=== PATIENT | male | born 1955 | race Caucasian/White ===

== ENCOUNTER 2018-07-15 20:54 | Inpatient (IN) | payer MEDICAID, OTHER ==
[~2018-07-15] VITALS: Ht 175.3 cm; Wt 82.0 kg
[2018-07-15] MEDS ORDERED: HYDROcodone/acetaminophen 10/325mg tab PO ONE (21:40)
[2018-07-15] MEDS ORDERED: lisinopril 10 MG tablet PO ONE (22:15)
[2018-07-16] VITALS (17 sets, daily range): BP systolic 124–160; BP diastolic 66–110
[2018-07-16] MEDS ORDERED: UNKNOWN B/P MED (00:10)
[2018-07-16] MEDS ORDERED: morphine 4 MG/ML inj SYRINge IV ONE (00:30)
[2018-07-16] MEDS ORDERED: ondansetron/PF 4mg/2ml inj IV ONE (00:30)
[2018-07-16] MEDS ORDERED: magnesium hydroxide 30ml (MOM) UD suspension PO PRN ×2 (01:05→15:45)
[2018-07-16] MEDS ORDERED: mag hydrox/Alum hydrox/simeth 30ml oral suspension PO PRN (01:05)
[2018-07-16] MEDS ORDERED: morphine 2 MG/ML inj. syringe IV PRN (01:05)
[2018-07-16] MEDS ORDERED: acetaminophen 325mg tablet PO PRN ×2 (01:05→15:45)
[2018-07-16] MEDS ORDERED: ondansetron/PF 4mg/2ml inj IV PRN ×2 (01:05→15:40)
[2018-07-16 01:29] LABS: BASOPHILS # (AUTO) 0.1 X10'3 (0-0.2); EOSINOPHILS # (AUTO) 0.5 X10'3 (0-0.9); NEUTROPHILS # (AUTO) 7.5 X10'3 (1.8-7.7); WHITE BLOOD COUNT 10.6 X10'3 (4.5-11.0)
[2018-07-16 01:34] LABS: BASOPHILS % (AUTO) 0.8 % (0-1); EOSINOPHILS % (AUTO) 4.5 % (0-6); HEMATOCRIT 44.3 % (42.0-52.0); HEMOGLOBIN 15.1 g/dl (14.0-17.9); LYMPHOCYTES # (AUTO) 1.7 X10'3 (1.1-4.8); LYMPHOCYTES % (AUTO) 15.8 % (21-51); MEAN CORPUSCULAR HEMOGLOBIN 31.9 PG (27.0-31.0); MEAN CORPUSCULAR HGB CONC 34.2 % (33.0-36.5); MEAN CORPUSCULAR VOLUME 93.3 FL (78-98); MONOCYTES # (AUTO) 0.8 X10'3 (0-0.9); MONOCYTES % (AUTO) 7.2 % (2-12); NEUTROPHILS % (AUTO) 71.7 % (42-75); PLATELET COUNT 241 X10'3 (140-440); RED BLOOD COUNT 4.74 X10'6 (4.70-6.10); RED CELL DISTRIBUTION WIDTH 12.9 % (11.5-14.5)
[2018-07-16] MEDS: normal saline 1000ml 1,000 ML IV SCH ×3 (01:39→20:57)
[2018-07-16 01:41] LABS: PARTIAL THROMBOPLASTIN TIME 27 SECONDS (22-32); PROTHROMBIN TIME 10.4 SECONDS (9.0-12.0)
[2018-07-16 01:43] LABS: ALANINE AMINOTRANSFERASE 39 U/L (12-78); ALBUMIN 3.7 G/DL (3.4-5.0); ALBUMIN/GLOBULIN RATIO 1.1 (1.1-1.5); ALKALINE PHOSPHATASE 90 IU/L (46-116); ANION GAP 9 (8-16); ASPARTATE AMINO TRANSFERASE 21 U/L (10-37); BILIRUBIN,TOTAL 0.8 MG/DL (0.1-1.0); BLOOD UREA NITROGEN 22 MG/DL (7-18); BUN/CREATININE RATIO 20.8 (5.4-32.0); CALCIUM 8.4 MG/DL (8.5-10.1); CHLORIDE 103 MMOL/L (99-107); CREATININE 1.06 MG/DL (0.60-1.10); GLUCOSE 95 MG/DL (70-104); SODIUM 139 MMOL/L (135-145); TOTAL CARBON DIOXIDE 26.8 MMOL/L (24-32); TOTAL PROTEIN 7.1 G/DL (6.4-8.2); eGFR 71 ML/MIN
[2018-07-16 01:44] LABS: CREATINE KINASE 254 U/L (39-308)
[2018-07-16] MEDS ORDERED: magnesium Cl slow-release 64mg tablet PO PRN (02:05)
[2018-07-16] MEDS ORDERED: potassium Cl 20 mEq SR tablet PO PRN ×2 (02:05)
[2018-07-16] MEDS ORDERED: potassium Cl 40MEQ/NS 500ml 500 ML IV PRN (02:05)
[2018-07-16] MEDS ORDERED: magnesium 4gm in 100ml NS 100 ML IV PRN (02:05)
[2018-07-16 02:18] LABS: MAGNESIUM 2.1 MG/DL (1.5-2.4)
[2018-07-16] MEDS: potassium Cl 40MEQ/NS 500ml 500 ML IV PRN ×2 (02:53→08:41)
[2018-07-16] MEDS: heparin, porcine 5000 units/ml vial SQ SCH ×2 (08:00→20:51)
[2018-07-16] MEDS: metoprolol tartrate 12.5mg (1/2 tablet) PO SCH ×2 (08:41→20:50)
[2018-07-16] MEDS: morphine 2 MG/ML inj. syringe IV PRN ×2 (08:45→12:52)
[2018-07-16 10:36] LABS: CLARITY,URINE CLEAR (Clear); COLOR,URINE YELLOW (Yellow); GLUCOSE, URINE NEGATIVE (Neg); KETONES,URINE NEGATIVE (Neg); LEUKOCYTE ESTERASE ,URINE NEGATIVE (Neg); NITRITES, URINE NEGATIVE (Neg); OCCULT BLOOD,URINE NEGATIVE (Neg); PROTEIN,URINE TRACE mg/dl (Neg); UROBILINOGEN,URINE 0.2 E.U/dL (0.2-1.0)
[2018-07-16 10:43] LABS: UA COLLECTION TYPE VOIDED
[2018-07-16 10:46] LABS: BACTERIA,URINE NONE SEEN /HPF (Neg); MUCUS STRANDS NONE SEEN /LPF (Neg); RBC,URINE NONE SEEN /HPF (0-2); SQUAMOUS EPITHELIAL CELL,UR NONE SEEN /LPF (FEW); WBC,URINE NONE SEEN /HPF (0-4)
[2018-07-16] MEDS ORDERED: albuterol 2.5 MG/3 ML nebule NEB PRN (12:05)
[2018-07-16 13:07] LABS: MAGNESIUM 1.9 MG/DL (1.5-2.4); POTASSIUM 3.8 MMOL/L (3.5-5.1)
[2018-07-16] MEDS: ceFAZolin 1GM/D5W- ADD-VANTAGE 50 ML IV SCH ×2 (14:00→16:00)
[2018-07-16] MEDS ORDERED: sevoflurane 250ml liquid IH ONE (15:00)
[2018-07-16] MEDS ORDERED: propofol inj 20 ML IV ONE (15:08)
[2018-07-16] MEDS ORDERED: midazolam 2 mg/2 ml injection ONE (15:08)
[2018-07-16] MEDS ORDERED: fentaNYL/PF 50MCG/1 ML 2ML syringe ONE ×2 (15:08)
[2018-07-16] MEDS ORDERED: LIDOcaine 2% (20mg/ml) 5ml vial ONE (15:08)
[2018-07-16] MEDS ORDERED: dexamethasone sod phosphate 4mg/ml inj. ONE (15:09)
[2018-07-16] MEDS ORDERED: ondansetron/PF 4mg/2ml inj ONE (15:10)
[2018-07-16] MEDS ORDERED: ringers solution, lacted 1,000 ML IV SCH (15:36)
[2018-07-16] MEDS ORDERED: labetalol 20mg/4ml (5mg/ml) syringe IV PRN (15:40)
[2018-07-16] MEDS ORDERED: morphine 4 MG/ML inj SYRINge IV PRN (15:40)
[2018-07-16] MEDS ORDERED: fentaNYL/PF 50MCG/1 ML 2ML syringe IV PRN ×3 (15:40)
[2018-07-16] MEDS ORDERED: hydrALAZINE 20mg/ml inj. IV PRN (15:40)
[2018-07-16] MEDS ORDERED: bisacodyl 10mg suppository rectal RC PRN (15:45)
[2018-07-16] MEDS ORDERED: diphenhydrAMINE 25mg capsule PO PRN ×2 (15:45)
[2018-07-16] MEDS ORDERED: ceFAZolin 1GM/D5W- ADD-VANTAGE 50 ML IV SCH (16:00)
[2018-07-16] MEDS: HYDROcodone/acetaminophen 5mg/325mg tablet PO PRN (20:49)
[2018-07-16] MEDS: sennosides 8.6mg tablet PO SCH (20:50)
[2018-07-16] MEDS: lactobacillus rhamnosus 10,000 MMU CELLS/CAPSULE PO SCH (20:50)
[2018-07-17] MEDS: ceFAZolin 1GM/D5W- ADD-VANTAGE 50 ML IV SCH ×2 (01:00→08:04)
[2018-07-17] MEDS: HYDROcodone/acetaminophen 5mg/325mg tablet PO PRN ×4 (01:11→19:12)
[2018-07-17 02:00] VITALS: BP 144/81
[2018-07-17 06:00] VITALS: BP 161/87
[2018-07-17 07:23] LABS: BASOPHILS # (AUTO) 0.1 X10'3 (0-0.2); BASOPHILS % (AUTO) 0.5 % (0-1); EOSINOPHILS % (AUTO) 0 % (0-6); HEMATOCRIT 40.6 % (42.0-52.0); HEMOGLOBIN 13.9 g/dl (14.0-17.9); LYMPHOCYTES % (AUTO) 7.7 % (21-51); MEAN CORPUSCULAR HEMOGLOBIN 32.2 PG (27.0-31.0); MEAN CORPUSCULAR HGB CONC 34.1 % (33.0-36.5); MEAN CORPUSCULAR VOLUME 94.2 FL (78-98); MEAN PLATELET VOLUME 7.7 FL (7.4-10.4); MONOCYTES # (AUTO) 0.6 X10'3 (0-0.9); MONOCYTES % (AUTO) 4.6 % (2-12); NEUTROPHILS # (AUTO) 11.4 X10'3 (1.8-7.7); NEUTROPHILS % (AUTO) 87.2 % (42-75); PLATELET COUNT 269 X10'3 (140-440); RED BLOOD COUNT 4.31 X10'6 (4.70-6.10); RED CELL DISTRIBUTION WIDTH 14.2 % (11.5-14.5); WHITE BLOOD COUNT 13.1 X10'3 (4.5-11.0)
[2018-07-17] MEDS: lactobacillus rhamnosus 10,000 MMU CELLS/CAPSULE PO SCH ×2 (08:03→19:11)
[2018-07-17] MEDS: metoprolol tartrate 12.5mg (1/2 tablet) PO SCH ×3 (08:03→19:40)
[2018-07-17] MEDS: normal saline 1000ml 1,000 ML IV SCH ×2 (08:04→22:04)
[2018-07-17] MEDS: heparin, porcine 5000 units/ml vial SQ SCH ×2 (08:04→19:13)
[2018-07-17 08:24] LABS: ALANINE AMINOTRANSFERASE 30 U/L (12-78); ALBUMIN/GLOBULIN RATIO 0.9 (1.1-1.5); ALKALINE PHOSPHATASE 84 IU/L (46-116); ANION GAP 9 (8-16); ASPARTATE AMINO TRANSFERASE 16 U/L (10-37); BILIRUBIN,TOTAL 0.4 MG/DL (0.1-1.0); BLOOD UREA NITROGEN 20 MG/DL (7-18); BUN/CREATININE RATIO 19.2 (5.4-32.0); CALCIUM 8.1 MG/DL (8.5-10.1); CHLORIDE 106 MMOL/L (99-107); CREATININE 1.04 MG/DL (0.60-1.10); GLUCOSE 129 MG/DL (70-104); MAGNESIUM 1.9 MG/DL (1.5-2.4); SODIUM 139 MMOL/L (135-145); TOTAL CARBON DIOXIDE 24.4 MMOL/L (24-32); TOTAL PROTEIN 6.5 G/DL (6.4-8.2); eGFR 73 ML/MIN
[2018-07-17 10:00] VITALS: BP 182/95
[2018-07-17 14:00] VITALS: BP 143/88
[2018-07-17 18:00] VITALS: BP 164/97
[2018-07-17] MEDS: sennosides 8.6mg tablet PO SCH (19:11)
[2018-07-17 22:00] VITALS: BP 153/94
[2018-07-18] MEDS: normal saline 1000ml 1,000 ML IV SCH (03:02)
[2018-07-18 05:00] VITALS: BP 169/98
[2018-07-18 07:05] LABS: BASOPHILS # (AUTO) 0.1 X10'3 (0-0.2); BASOPHILS % (AUTO) 1.5 % (0-1); EOSINOPHILS # (AUTO) 0.4 X10'3 (0-0.9); EOSINOPHILS % (AUTO) 3.9 % (0-6); HEMATOCRIT 39.5 % (42.0-52.0); HEMOGLOBIN 13.7 g/dl (14.0-17.9); LYMPHOCYTES % (AUTO) 20.2 % (21-51); MEAN CORPUSCULAR HEMOGLOBIN 32.2 PG (27.0-31.0); MEAN CORPUSCULAR HGB CONC 34.7 % (33.0-36.5); MEAN CORPUSCULAR VOLUME 92.8 FL (78-98); MEAN PLATELET VOLUME 7.4 FL (7.4-10.4); MONOCYTES # (AUTO) 0.7 X10'3 (0-0.9); MONOCYTES % (AUTO) 7.4 % (2-12); NEUTROPHILS # (AUTO) 6.6 X10'3 (1.8-7.7); PLATELET COUNT 257 X10'3 (140-440); RED BLOOD COUNT 4.26 X10'6 (4.70-6.10); RED CELL DISTRIBUTION WIDTH 14.2 % (11.5-14.5); WHITE BLOOD COUNT 9.9 X10'3 (4.5-11.0)
[2018-07-18 07:32] LABS: ALANINE AMINOTRANSFERASE 26 U/L (12-78); ALBUMIN 3.1 G/DL (3.4-5.0); ALBUMIN/GLOBULIN RATIO 0.9 (1.1-1.5); ALKALINE PHOSPHATASE 76 IU/L (46-116); ANION GAP 5 (8-16); ASPARTATE AMINO TRANSFERASE 16 U/L (10-37); BILIRUBIN,TOTAL 0.6 MG/DL (0.1-1.0); BLOOD UREA NITROGEN 13 MG/DL (7-18); BUN/CREATININE RATIO 14.6 (5.4-32.0); CALCIUM 8.3 MG/DL (8.5-10.1); CHLORIDE 106 MMOL/L (99-107); CREATININE 0.89 MG/DL (0.60-1.10); GLUCOSE 107 MG/DL (70-104); MAGNESIUM 1.8 MG/DL (1.5-2.4); POTASSIUM 3.4 MMOL/L (3.5-5.1); SODIUM 140 MMOL/L (135-145); TOTAL CARBON DIOXIDE 28.7 MMOL/L (24-32); TOTAL PROTEIN 6.6 G/DL (6.4-8.2); eGFR 87 ML/MIN
[2018-07-18 07:51] VITALS: BP 188/115
[2018-07-18] MEDS: lactobacillus rhamnosus 10,000 MMU CELLS/CAPSULE PO SCH (07:52)
[2018-07-18] MEDS: heparin, porcine 5000 units/ml vial SQ SCH (07:52)
[2018-07-18] MEDS ORDERED: metoprolol tartrate 25mg tablet PO SCH (08:00)
[2018-07-18] MEDS ORDERED: METO25TA6 PO (09:47)
[2018-07-18] MEDS ORDERED: SENN-173 PO (09:47)
[2018-07-18] MEDS ORDERED: HYDR-569 PO (09:47)
[2018-07-18] MEDS ORDERED: ALBU8HFA PO (09:59)
[2018-07-18 10:00] VITALS: BP 174/96
== END 2018-07-18 12:50 | disposition home or self-care (01) | DRG 308 ==
LOC: ER 20:55 → ED HOLD 07-16 01:02 → ORTHO 4S 07-16 02:16
PROVIDERS: ADMIT Internal Medicine; ATTEND Internal Medicine
PROC: 0QS734Z Reposition Left Upper Femur with Internal Fixation Device, Percutaneous Approach (ICD-10-PCS; principal; 2018-07-16 15:00)
DX: S72.002A Fracture of unspecified part of neck of left femur, initial encounter for closed fracture (principal); E87.6 Hypokalemia; F12.90 Cannabis use, unspecified, uncomplicated; I10 Essential (primary) hypertension; W11.XXXA Fall on and from ladder, initial encounter; Z80.8 Family history of malignant neoplasm of other organs or systems; Z72.0 Tobacco use; Y93.89 Activity, other specified; Y92.89 Other specified places as the place of occurrence of the external cause; Y99.8 Other external cause status
CPT/HCPCS: 27187; 36415; 71045; 72192; 73501; 73502; 76000; 80053; 81001; 82550; 83735; 84132; 85025; 85610; 85730; 86885; 86900; 86901; 87070; 93005; 94640; 94760; 97110; 97116; 97161; 97530; 99285; A7000; J0690; J1100; J1644; J2001; J2250; J2270; J2405; J2704; J3010; J3480; J7030; J7120